=== PATIENT | female | born 1995 | race Caucasian/White ===

== ENCOUNTER → 2020-12-27 | Outpatient (CLI) | payer OTHER | END | disposition home or self-care (01) | LOC: PATHPVH 20:00 | DX: D28.1 Benign neoplasm of vagina (principal); N76.0 Acute vaginitis; N75.0 Cyst of Bartholin's gland; L98.9 Disorder of the skin and subcutaneous tissue, unspecified | CPT/HCPCS: 88321; 88341; 88342 ==